=== PATIENT | male | born 1945 | race Caucasian/White ===

== ENCOUNTER 2021-02-05 22:22 | Inpatient (IN) | payer OTHER ==
[~2021-02-05] VITALS: Ht 162.6 cm; Wt 73.5 kg
[~2021-02-05 22:22] MED LIST: ASPIRIN EC81 MG PO; AVODART0.5 MG PO; CRESTOR20 MG PO; EFFEXOR XR75 MG PO; FLOMAX 0.4 MG0.4 MG PO; IMDUR ER TAB 6060 MG PO; JANUMET 50-5001 EACH PO; NITROSTAT0.4 MG SL; NORCO 10-325 T1 EACH PO; PLAVIX75 MG PO; TENORMIN100 MG PO; XANAX0.5 MG PO
[2021-02-06 06:40] LABS: RED BLOOD COUNT 5.8 M/UL (4.20-5.50); WHITE BLOOD COUNT 12.5 K/UL (4.5-11.0)
[2021-02-06] MEDS ORDERED: ALPRAZOLAM1 MG PO (10:35)
[2021-02-06] MEDS ORDERED: CLARITIN 10MG T10 MG PO (10:36)
[2021-02-06] MEDS ORDERED: HYDROCODON-ACE1 EAC6 PO (10:37)
[2021-02-06] MEDS ORDERED: VITAMIN D21250 MCG PO (10:39)
[2021-02-06] MEDS ORDERED: AMITRIPTYLINE100 MG PO (10:39)
[2021-02-06] MEDS ORDERED: DONEPEZIL HCL5 MG PO (10:40)
[2021-02-06] MEDS ORDERED: CARVEDILOL6.25 MG PO (10:40)
[2021-02-06] MEDS ORDERED: FUROSEMIDE40 MG PO (10:41)
[2021-02-06] MEDS ORDERED: LANSOPRAZOLE30 MG PO (10:41)
[2021-02-06] MEDS ORDERED: JARDIANCE10 MG PO (10:41)
[2021-02-06] MEDS ORDERED: METFORMIN HCL1000 MG PO (10:42)
[2021-02-06] MEDS ORDERED: LISINOPRIL10 MG PO (10:42)
[2021-02-06] MEDS ORDERED: LINZESS145 MCG PO (10:42)
[2021-02-06] MEDS ORDERED: OMEGA-3 ACID ETH1 GM PO (10:43)
[2021-02-06] MEDS ORDERED: CELECOXIB200 MG PO (10:44)
[2021-02-06] MEDS ORDERED: POTASSIUM CHLO10 ME1 PO (10:45)
[2021-02-06] MEDS ORDERED: SYMBICORT 16010.2 GM INH (10:45)
[2021-02-06] MEDS ORDERED: QUETIAPINE FUM100 MG PO (10:45)
[2021-02-06] MEDS ORDERED: VASCEPA1 GM PO (10:47)
[2021-02-06] MEDS ORDERED: PROVENTIL HFA6.7 GM INH (10:48)
[2021-02-06] MEDS ORDERED: AMITIZA24 MCG PO (10:51)
[2021-02-07 02:49] LABS: WHITE BLOOD COUNT 9.4 K/UL (4.5-11.0)
[2021-02-07 02:58] LABS: HEMOGLOBIN 12.6 gm/dl (14.0-17.5); RED BLOOD COUNT 4.98 M/UL (4.20-5.50)
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
[2021-02-07 09:15] LABS: HBSAG SCREEN Negative (Negative); HEP A AB, IGM Negative (Negative); HEP B CORE AB, IGM Negative (Negative); HEP C VIRUS AB <0.1 (0.0-0.9)
[2021-02-08] MEDS ORDERED: DIGOXIN125 MCG PO (13:46)
[2021-02-08] MEDS ORDERED: FUROSEMIDE40 MG PO (13:46)
--- NOTE | 2021-02-08 15:59 | NUR ---
REPORT CALLED TO [facility] [place]
[2021-02-09 08:14] LABS: ANTISTREPTOLYSIN O AB <20.0 IU/mL (0.0-200.0); COMPLEMENT C3, SERUM 111 mg/dL (82-167); COMPLEMENT C4, SERUM 18 mg/dL (12-38)
[2021-02-09 11:14] LABS: HBSAG SCREEN Negative (Negative); HEP B CORE AB, TOT Negative (Negative); HEP C VIRUS AB <0.1 (0.0-0.9)
[2021-02-09 15:14] LABS: ANTI-DSDNA ANTIBODIES <1 IU/mL (0-9)
[2021-02-09 17:09] LABS: ALBUMIN 2.7 g/dL (2.9-4.4); ALPHA-1-GLOBULIN 0.3 g/dL (0.0-0.4); ALPHA-2-GLOBULIN 0.8 g/dL (0.4-1.0); ATYPICAL PANCA <1:20 titer (Neg:<1:20); CYTOPLASMIC (C-ANCA) <1:20 titer (Neg:<1:20); GAMMA GLOBULIN 0.7 g/dL (0.4-1.8); GLOBULIN, TOTAL 2.8 g/dL (2.2-3.9); IMMUNOGLOBULIN A, QN, SERUM 224 mg/dL (61-437); IMMUNOGLOBULIN G, QN, SERUM 643 mg/dL (603-1613); IMMUNOGLOBULIN M, QN, SERUM 34 mg/dL (15-143); M-SPIKE Not Observed g/dL (Not Observed); PERINUCLEAR (P-ANCA) <1:20 titer (Neg:<1:20); PROTEIN, TOTAL, SERUM 5.5 g/dL (6.0-8.5)
== END 2021-02-08 15:50 | disposition home or self-care (01) | DRG 682 ==
LOC: M/S 22:22 → PROG CARE 02-06 05:03
PROVIDERS: Internal Medicine Infectious Disease; Internal Medicine Nephrology; ADMIT Internal Medicine
PROC: B24BZZ4 Ultrasonography of Heart with Aorta, Transesophageal (ICD-10-PCS; principal; 2021-02-06)
DX: N17.9 Acute kidney failure, unspecified (principal); I50.23 Acute on chronic systolic (congestive) heart failure; I42.9 Cardiomyopathy, unspecified; E87.2 Acidosis; N30.00 Acute cystitis without hematuria; E87.1 Hypo-osmolality and hyponatremia; I13.0 Hypertensive heart and chronic kidney disease with heart failure and stage 1 through stage 4 chronic kidney disease, or unspecified chronic kidney disease; N40.0 Benign prostatic hyperplasia without lower urinary tract symptoms; E11.9 Type 2 diabetes mellitus without complications; F41.9 Anxiety disorder, unspecified; Z66 Do not resuscitate; I27.20 Pulmonary hypertension, unspecified; I25.10 Atherosclerotic heart disease of native coronary artery without angina pectoris; F32.9 Major depressive disorder, single episode, unspecified; F10.10 Alcohol abuse, uncomplicated; F03.90 Unspecified dementia, unspecified severity, without behavioral disturbance, psychotic disturbance, mood disturbance, and anxiety; Z96.643 Presence of artificial hip joint, bilateral; E11.22 Type 2 diabetes mellitus with diabetic chronic kidney disease; F11.10 Opioid abuse, uncomplicated; N18.30 Chronic kidney disease, stage 3 unspecified; E87.6 Hypokalemia; I95.9 Hypotension, unspecified; S81.812A Laceration without foreign body, left lower leg, initial encounter; I08.3 Combined rheumatic disorders of mitral, aortic and tricuspid valves; W18.30XA Fall on same level, unspecified, initial encounter; Y92.009 Unspecified place in unspecified non-institutional (private) residence as the place of occurrence of the external cause; Z95.5 Presence of coronary angioplasty implant and graft; Z82.49 Family history of ischemic heart disease and other diseases of the circulatory system; Z87.891 Personal history of nicotine dependence; Z88.6 Allergy status to analgesic agent; Z90.49 Acquired absence of other specified parts of digestive tract; Z83.3 Family history of diabetes mellitus
CPT/HCPCS: ECHO; 36415; 76705; 80053; 80074; 80307; 81001; 82550; 82553; 82570; 82784; 82962; 83520; 83605; 83883; 84132; 84133; 84155; 84156; 84165; 84300; 84439; 84443; 84484; 85025; 86038; 86060; 86160; 86162; 86225; 86256; 86334; 86704; 86706; 86708; 86803; 87086; 87340; 89050; 93005; 93306; 93970; 96374; 97110-GP-CQ; 97116-GP-CQ; 97161; 97165; G0378; G0379; J0696; J1160; J1650; J3486; U0002